=== PATIENT | male | born 2000 | race Caucasian/White ===

== ENCOUNTER 2020-05-03 20:33 | Emergency (ER) | payer BC ==
[~2020-05-03] VITALS: Ht 195.6 cm; Wt 142.9 kg
[2020-05-03 23:41] VITALS: BP 146/90
== END 2020-05-03 23:42 | disposition home or self-care (01) ==
LOC: ER 20:33
DX: S61.215A Laceration without foreign body of left ring finger without damage to nail, initial encounter (principal); W26.8XXA Contact with other sharp object(s), not elsewhere classified, initial encounter; Y93.89 Activity, other specified; Y92.89 Other specified places as the place of occurrence of the external cause; Y99.8 Other external cause status